=== PATIENT | female | born 1980 | race Caucasian/White ===

== ENCOUNTER 2020-02-25 17:51 | Observation (INO) | payer SELFPAY ==
[2020-02-25] MEDS ORDERED: NALOXONE HCL INJ/PF 0.4 MG/1 ML SDV ONE (18:18)
[2020-02-25] MEDS ORDERED: NALOXONE HCL INJ/PF 0.4 MG/1 ML SDV IV ONE ×2 (18:26→19:18)
--- NOTE | 2020-02-25 18:33 | ER Document Report ---
ED General - General Chief Complaint: Overdose Stated Complaint: POSSIBLE OVERDOSE Time Seen by Provider: 02/25/20 18:09 - HPI Notes: Patient is a 39-year-old female who presents to the emergency department for evaluation after an overdose. Evidently she was snorting heroin, taking Xanax. She was found by EMS and family to be unresponsive, had perioral cyanosis, with a respiratory rate of 6. She was administered 0.2 mg of IM naloxone, back, and brought to the emergency department. The patient states she was only doing it recreationally. She states she is to be prescribed Xanax. She also states that she only started using heroin recently, and states to me "it was not that much." She denies any suicidal or homicidal ideations. No visual or auditory hallucinations. - Related Data Allergies/Adverse Reactions: amoxicillin Allergy (Verified 02/25/20 18:07) Penicillins Allergy (Verified 02/25/20 18:07) Past Medical History - General Information source: Patient - Social History Smoking Status: Current Every Day Smoker Chew tobacco use (# tins/day): No Drug Abuse: Heroin, Marijuana, Prescription drugs - Benzodiazepines Family History: Reviewed & Not Pertinent Patient has homicidal ideation: No Malignancy Medical History: Reports: Hx Cervical Cancer Psychiatric Medical History: Reports: Hx Anxiety Review of Systems - Review of Systems Respiratory: See HPI Neurological/Psychological: See HPI -: Yes All other systems reviewed and negative Physical Exam - Vital signs Vitals: BP 119/89 H 02/25/20 17:58 - Notes Notes: This is an extremely drowsy 39-year-old female who appears her stated age. On initial evaluation respiratory rate between 8 and 10. Pupils pinpoint. She would open her eyes to command, voice was slurred. Vital signs reviewed, please refer to chart. Head is normocephalic, atraumatic. Neck is supple without meningismus. Heart is regular rate and rhythm. Lungs are clear to auscultation bilaterally. Abdomen is soft, nontender, normoactive bowel sounds throughout. Extremities without cyanosis, clubbing. Posterior calves are nontender. Cecelia pheral pulses are equal. Skin is warm and dry. Course - Re-evaluation Re-evalutation: 02/25/20 18:32 Patient presents to the emergency department for evaluation. Initially respiratory rate was depressed, her pupils were pinpoint. Once IV was established in the left arm, patient was administered 0.4 mg of IV Narcan. Her respiratory rate immediately rebounded to 16, and patient became more awake and alert. Her pupils are now 4 mm and reactive. She was placed on a monitor. I offered her drug counseling, the patient states "I really do not use heroin that much." Patient is on monitor. Blood work is drawn. We will continue to monitor. 02/25/20 19:20 Labs were reviewed. Patient's calcium is only mildly low when it is corrected. Her potassium and magnesium were ordered to be replaced. I went back and reassessed the patient. Again she is somnolent, respiratory rate is 8, and pupils are pinpoint. More Narcan ordered. 02/25/20 20:52 Shortly after administration of third dose of Narcan, patient again became lissette nolent, pinpoint pupils. Narcan drip ordered. I spoke with Fazal Mckenzie, [employer] and clinical application manager overnight, he will admit the patient for further care. 02/25/20 20:55 Please note that nursing took a phone call from the patient's mother. It was reported that the patient was fighting with her , locked herself in the bathroom, and overdosed on these medications. I confronted the patient with this knowledge. She denies this. She denies any suicidal ideation. She states she does not even have a door on her bathroom at this time. Please note the clinical application manager overnight was notified of this update. - Vital Signs Vital signs: Temp Pulse Resp BP Pulse Ox 98.1 F 14 109/74 98 02/25/20 18:02 02/25/20 19:23 02/25/20 19:23 02/25/20 19:23 - Laboratory Result Diagrams: 02/25/20 18:20 02/25/20 18:20 Laboratory results interpreted by me: 02/25/20 02/25/20 18:20 18:20 RDW 15.0 H Sodium 136.9 L Potassium 3.0 L* Chloride 113 H Anion Gap 2 L Calcium 6.4 L* Magnesium 1.4 L AST 41 H ALT 56 H Total Protein 5.5 L Albumin 2.5 L Salicylates < 1.0 L Acetaminophen < 10 L - EKG Interpretation by Me Additional EKG results interpreted by me: 05/26/20 20:54 Sinus mechanism with a rate of 70 bpm. Normal axis and intervals. No acute ST changes concerning for ischemia or infarction. Discharge - Discharge Clinical Impression: Heroin overdose, Hypokalemia, Hypomagnesemia Condition: Stable Disposition: ADMITTED OBSERVATION Admitting Provider: Kisha ([employer] Pipelines Supervisor) Unit Admitted: ICU
[2020-02-25 18:42] LABS: ABSOLUTE BASOPHILS # (AUTO) 0.1 10^3/uL (0.0-0.2); ABSOLUTE EOSINOPHILS # (AUTO) 0.1 10^3/uL (0.0-0.6); ABSOLUTE LYMPHOCYTES (AUTO) 1.5 10^3/uL (0.5-4.7); ABSOLUTE MONOCYTES (AUTO) 0.6 10^3/uL (0.1-1.4); ABSOLUTE NEUT (AUTO) 5.8 10^3/uL (1.7-8.2); BASOPHILS % (AUTO) 1.4 % (0-2); HEMATOCRIT 40.7 % (36.0-47.0); HEMOGLOBIN 13.9 g/dL (12.0-15.5); LYMPHOCYTES % (AUTO) 18.4 % (13-45); MEAN CORPUSCULAR HEMOGLOBIN 30.5 pg (27.0-33.4); MEAN CORPUSCULAR HGB CONC 34.2 g/dL (32.0-36.0); MEAN CORPUSCULAR VOLUME 89 fl (80-97); MONOCYTES % (AUTO) 6.9 % (3-13); PLATELET COUNT 235 10^3/uL (150-450); RED BLOOD COUNT 4.56 10^6/uL (3.72-5.28); SEGMENTED NEUTROPHILS % (AUTO) 72.3 % (42-78); TOTAL CELLS COUNTED % (AUTO) 100 %
[2020-02-25 18:57] LABS: ALBUMIN 2.5 g/dL (3.5-5.0); ALKALINE PHOSPHATASE 59 U/L (38-126); ASPARTATE AMINO TRANSFERASE 41 U/L (14-36); BILIRUBIN,TOTAL 0.4 mg/dL (0.2-1.3); BLOOD UREA NITROGEN 8 mg/dL (7-20); GLUCOSE 89 mg/dL (75-110); TOTAL PROTEIN 5.5 g/dL (6.3-8.2)
[2020-02-25 19:02] LABS: CARBON DIOXIDE 22 mmol/L (22-30); CHLORIDE 113 mmol/L (98-107)
[2020-02-25 19:12] LABS: ACETAMINOPHEN < 10 ug/mL (10-30); ALCOHOL < 10 mg/dL (NONE DETECTED); SALICYLATE < 1.0 mg/dL (2.0-20.0)
[2020-02-25 19:13] LABS: CALCIUM 6.4 mg/dL (8.4-10.2)
[2020-02-25 19:14] LABS: ANION GAP 2 (5-19)
[2020-02-25] MEDS ORDERED: MAGNESIUM SULFATE/D5W 1 GM/100 ML RTUPB IV ONE (19:15)
[2020-02-25] MEDS ORDERED: POTASSIUM CHLORIDE 10 MEQ TABLET.ER PO ONE (19:15)
[2020-02-25] MEDS ORDERED: NORMAL SALINE 500 ML with NALOXONE HCL 2 MG IV PRN ×2 (19:50)
[2020-02-25] MEDS ORDERED: NALOXONE HCL INJ 2 MG/2 ML DISP.SYRIN ONE (20:12)
[2020-02-25] MEDS: MAGNESIUM SULFATE/D5W 1 GM/100 ML RTUPB IV SCH ×2 (22:46→23:47)
[2020-02-26] MEDS ORDERED: RINGERS SOLUTION,LACTATED 500 ML IV ONE (00:11)
[2020-02-26] MEDS: MAGNESIUM SULFATE/D5W 1 GM/100 ML RTUPB IV SCH (01:32)
--- NOTE | 2020-02-26 03:54 | CRITICAL CARE ADMISSION REPORT ---
HPI Date:: 02/25/20 Time:: 21:00 Reason for ICU Reason:: Metabolic encephalopathy due to accidental heroin overdose, respiratory depression HPI: Haleigh Lu is a 39-year-old female with a PMH significant for seizures of unclear etiology with onset at age 33 with no prescription for medication, occasional migraine headaches for which she only takes Tylenol, remote pyelonephritis during , and remote gastric ulcer for which she avoids NSAID's who presented to [facility] ED following an accidental heroin overdose. She was found by family and EMS to be unresponsive, had perioral cyanosis, with a respiratory rate of 6 for which she received 0.2 mg of IM Naloxone and was brought to the emergency department. Mrs Lu had pinpoint pupils with respiratory depression requiring multiple doses of Naloxone in the ED due to recurrent somnolence and respiratory depression for which a Naloxone infusion had to be initiated. ICU team is consulted to monitor for respiratory depression and management of the Naloxone infusion. To note, Mrs Lu reportedly had a prescription for Xanax in the past, but now obtains it illegally. She also informed me that she never does heroin, but decided to do "a little bit" and last exposure was years ago. She denies suicidal or homicidal ideations with no visual or auditory hallucinations at this time. Mrs Lu was wide awake during my encounter. History obtained from:: Patient, ER physician - Diagnosis/Plan (1) Accidental overdose of heroin Qualifiers: Encounter type: initial encounter Qualified Code(s): T40.1X1A - Poisoning by heroin, accidental (unintentional), initial encounter Is this a current diagnosis for this admission?: Yes Plan: Substance abuse cessation counseling will need to be provided prior to discharge. (2) Acute metabolic encephalopathy Is this a current diagnosis for this admission?: Yes Plan: Improved after multiple IV push doses of Naloxone in the ED followed by an infusion. Monitor for recurrence. (3) Respiratory depression Is this a current diagnosis for this admission?: Yes Plan: Improved after multiple IV push doses of Naloxone in the ED followed by an infusion. Monitor for recurrent depression in ICU. (4) Hypokalemia Is this a current diagnosis for this admission?: Yes (5) Hypomagnesemia Is this a current diagnosis for this admission?: Yes (6) Tobacco abuse Is this a current diagnosis for this admission?: Yes Plan: Tobacco abuse cessation counseling will need to be provided prior to discharge. Monitor need for Nicotine patch. Plan Summary: Mrs Lu will be admitted under observation status to the ICU on a Naloxone infusion monitoring for respiratory depression. However, she was wide awake conversing with me in an appropriate manner for 30 minutes during my encounter in the ED and I suspect the Naloxone will be discontinued overnight. She admits to snorting a small amount of heroin which she reportedly does not do regularly, uncertain if laced with any other additive such as Fentanyl. She has been experiencing a lot of stress lately in regards to her teenage daughter being impregnated "by a heroin addict" for which they both now live under her roof. She denies having any altercation with her . Admittedly, Mrs Lu does report a history of "anger management issues" on occasion which she has been working on, but denies suicidal or homicidal ideations. This appears to be an accidental heroin overdose and psychiatry does not need to be involved at this time. Mrs Lu will remain on telemetry with continuous pulse oximetry overnight. I will likely start her on a regular diet at some point if she maintains current level of alertness. Her Potassium has already been repleted orally, though I anticipate she will need more in the AM. She is receiving 1 gm of Magnesium, though I will order 3 additional grams for a total of 4 gm with no need to repeat the level in the AM. Will check ionized Ca+ level in AM. No an tibiotics are warranted at this time. A urine drug screen will be sent once patient voids. Bedrest tonight, with out of bed to chair in the morning if off Narcan infusion. I anticipate Mrs Lu will be discharged home from ICU in the morning, therefore, have placed her in observation status. Past Medical History Cardiac Medical History: Reports: None Pulmonary Medical History: Reports: None EENT Medical History: Reports: None Neurological Medical History: Reports: Migraine - does not take medicine, Seizures - Last seizure <2 weeks ago and one prior to that was "two years ago." Denies: Hemorrhagic CVA, Ischemic CVA, Multiple Sclerosis Endocrine Medical History: Reports: None Renal/ Medical History: Reports: Chronic Kidney Disease, Other - remote pyelonephritis causing some reduced renal dysfunction historically Denies: Nephrolithiasis Malignancy Medical History: Reports: Cervical Cancer GI Medical History: Reports: Other - remote gastric ulcer s/p EGD-unsure if c autery or hemostatic clips applied Musculoskeltal Medical History: Reports: None Skin Medical History: Reports: None Psychiatric Medical History: Reports: General Anxiety Disorder, Tobacco Dependency Traumatic Medical History: Reports: None Hematology: Reports: None Infectious Medical History: Reports: None Past Surgical History Past Surgical History: Reports: Section, Other - EGD Social/Family History - Social History Smoking Status: Current Every Day Smoker Frequency of Alcohol Use: Rare Hx Recreational Drug Use: Yes Drugs: Heroin - last use earlier today, Marijuana, Other - Xanax-last use 02/24/2020 - Family History Family History: Hypertension - Medication/Allergies Home Medications: Azithromycin 250 mg PO DAILY #4 tablet 03/07/16 Oxycodone HCl 5 mg PO Q4 #20 tablet 03/07/16 Allergies/Adverse Reactions: amoxicillin Allergy (Verified 02/25/20 18:07) Penicillins Allergy (Verified 02/25/20 18:07) Review of Systems Constitutional: ABSENT: chills, fever(s), headache(s), night sweats, weakness Eyes: ABSENT: visual disturbances Ears: ABSENT: hearing changes Nose, Mouth, and Throat: ABSENT: headache(s), mouth pain, sore throat, vertigo Cardiovascular: ABSENT: chest pain, dyspnea on exertion, edema Respiratory: ABSENT: cough, dyspnea, hemoptysis Gastrointestinal: ABSENT: abdominal pain, nausea, vomiting Genitourinary: ABSENT: dysuria, hematuria Musculoskeletal: ABSENT: deformity, joint swelling, muscle weakness Integumentary: ABSENT: diaphoresis, erythema, pruritus, rash, wounds Neurological: ABSENT: abnormal gait, convulsions, dizziness, frequent falls, syncope, weakness Psychiatric: PRESENT: anxiety. ABSENT: hallucinations, homidical ideation, suicidal ideation Endocrine: ABSENT: cold intolerance, heat intolerance Hematologic/Lymphatic: ABSENT: easy bleeding, easy bruising, lymphadenopathy Physical Exam Vital Signs: Temp Pulse Resp BP Pulse Ox 98.1 F 20 113/70 97 02/25/20 18:02 02/25/20 21:01 02/25/20 21:01 02/25/20 21:01 Intake & Output 02/24/20 02/25/20 02/26/20 06:59 06:59 06:59 Intake Total 100 Balance 100 General appearance: PRESENT: no acute distress, cooperative, obese, well- developed Head exam: PRESENT: atraumatic, normocephalic Eye exam: PRESENT: conjunctiva pink, EOMI, PERRLA. ABSENT: periorbital swelling, scleral icterus Ear exam: PRESENT: normal external ear exam Mouth exam: PRESENT: moist, neck supple, tongue midline. ABSENT: dry mucosa Throat exam: ABSENT: post pharyngeal erythema Neck exam: PRESENT: full ROM. ABSENT: JVD, lymphadenopathy, tenderness, tracheal deviation Respiratory exam: PRESENT: clear to auscultation [place], symmetrical, unlabored. ABSENT: accessory muscle use Cardiovascular exam: PRESENT: RRR, +S1, +S2. ABSENT: gallop, rubs, systolic murmur Pulses: PRESENT: normal radial pulses, +2 pedal pulses bilateral Vascular exam: PRESENT: normal capillary refill GI/Abdominal exam: PRESENT: normal bowel sounds, soft. ABSENT: distended, guarding, rebound, tenderness Rectal exam: PRESENT: deferred Extremities exam: PRESENT: full ROM. ABSENT: joint swelling, pedal edema, tenderness Musculoskeletal exam: PRESENT: full ROM, normal inspection. ABSENT: deformity, tenderness Neurological exam: PRESENT: alert, awake, oriented to place, oriented to time, oriented to situation, CN II-XII grossly intact Psychiatric exam: PRESENT: appropriate affect, normal mood. ABSENT: homicidal ideation, manic, suicidal ideation Focused psych exam: ABSENT: restlessness Skin exam: PRESENT: dry, intact, normal color, warm. ABSENT: jaundice, rash Laboratory/Radiographs Laboratory Results: 02/25/20 18:20 02/25/20 18:20 02/25/20 02/25/20 02/25/20 18:20 18:20 18:20 WBC 8.0 RBC 4.56 Hgb 13.9 Hct 40.7 MCV 89 MCH 30.5 MCHC 34.2 RDW 15.0 H Plt Count 235 Seg Neutrophils % 72.3 Sodium 136.9 L Potassium 3.0 L* Chloride 113 H Carbon Dioxide 22 Anion Gap 2 L BUN 8 Creatinine 0.53 Est GFR ( Amer) > 60 Glucose 89 Calcium 6.4 L* Magnesium 1.4 L Total Bilirubin 0.4 AST 41 H Alkaline Phosphatase 59 Total Protein 5.5 L Albumin 2.5 L Serum HCG, Qual NEGATIVE EKG: NSR with no evidence of cardiac ischemia/infarction. All labs, radiographs, diagnostic studies and EKGs were personally reviewed: Yes Critical Time Critical Time (minutes): 60 -: The care of a critically ill patient is dynamic. This note represents a static moment in the admission process. Orders and treatments may be given simultaneously and urgently, and time is not guest experience representative of the treatment process. This patient requires Critical Care secondary to life threatening organ or limb dysfunction. Without Critical Care services, the patient is at risk for in creased mortality and morbidity.
[2020-02-26 04:43] LABS: APPEARANCE,URINE SLIGHTLY-CLOUDY; BILIRUBIN,URINE NEGATIVE (NEGATIVE); COLOR,URINE YELLOW; GLUCOSE, URINE NEGATIVE (NEGATIVE); KETONES,URINE NEGATIVE (NEGATIVE); LEUKOCYTE ESTERASE,URINE MODERATE (NEGATIVE); NITRITE,URINE NEGATIVE (NEGATIVE); PROTEIN,URINE 100 mg/dL (NEGATIVE); URINE SPECIFIC GRAVITY 1.015; UROBILINOGEN,URINE NEGATIVE mg/dL (<2.0)
[2020-02-26 04:50] LABS: ALBUMIN 3.8 g/dL (3.5-5.0); ALKALINE PHOSPHATASE 82 U/L (38-126); ANION GAP 5 (5-19); ASPARTATE AMINO TRANSFERASE 52 U/L (14-36); BILIRUBIN,TOTAL 0.5 mg/dL (0.2-1.3); BLOOD UREA NITROGEN 9 mg/dL (7-20); CARBON DIOXIDE 26 mmol/L (22-30); CHLORIDE 103 mmol/L (98-107); GLUCOSE 91 mg/dL (75-110); PHOSPHORUS 4.3 mg/dL (2.5-4.5); TOTAL PROTEIN 7.2 g/dL (6.3-8.2)
[2020-02-26 04:57] LABS: POTASSIUM 4.6 mmol/L (3.6-5.0)
[2020-02-26 04:57] LABS: URINE BARBITURATES SCREEN NEGATIVE; URINE COCAINE SCREEN NEGATIVE; URINE METHADONE SCREEN NEGATIVE; URINE PHENCYCLIDINE SCREEN NEGATIVE
[2020-02-26 05:23] LABS: URINE BENZODIAZEPINES SCREEN UNCONFIRMED POSITIVE; URINE MARIJUANA (THC) SCREEN UNCONFIRMED POSITIVE
--- NOTE | 2020-02-26 07:24 | EKG REPORT ---
SEVERITY:- NORMAL ECG - SINUS RHYTHM : Confirmed by: Chuy Mclean MD 26-Feb-2020 07:23:17
--- NOTE | 2020-02-26 07:48 | PDOC DISCHARGE SUMMARY ---
Impression - Admit/DC Date/PCP Admission Date/Primary Care Provider: 02/25/20 21:01 Discharge Date: 02/26/20 - Discharge Diagnosis (1) Acute hypercapnic respiratory failure Is this a current diagnosis for this admission?: Yes (2) Accidental overdose of heroin Is this a current diagnosis for this admission?: Yes (3) Acute metabolic encephalopathy Is this a current diagnosis for this admission?: Yes (5) Hypokalemia Is this a current diagnosis for this admission?: Yes (6) Hypomagnesemia Is this a current diagnosis for this admission?: Yes (7) Respiratory depression Is this a current diagnosis for this admission?: Yes (8) Tobacco abuse Is this a current diagnosis for this admission?: Yes (9) UTI (urinary tract infection), uncomplicated Is this a current diagnosis for this admission?: Yes - Assessment Summary: Pat Moore is a 39-year-old female with an occasional history of heroin use who after being upset regarding social issues at home took an unintentional overdose of heroin. There was no intent for self-harm. She had some mild hypokalemia and mild respiratory depression related to this which was treated with Narcan and potassium supplementation. Repeat potassium had normalized. She was intent on leaving AGAINST MEDICAL ADVICE but was able to be reasoned with and convinced to await physician reexamination. She is fully awake, fully aware, understands the implications of what she did and is interested in seeking rehabilitation. She also states that she really does not habitually use heroin but did this as a frustration in response to her daughter's . She denies chest pain, shortness of breath, abdominal pain, fever,. She was noted to have positive leukocyte esterase in her urine with white blood cells. She does endorse that she had dysuria a week ago but appear to be improving. She does not endorse any pelvic inflammatory disease symptomatology or vaginal discharge. She had an uneventful ICU course. She was able to ambulate in the ICU. No hemodynamic instability no neurological deficits. - Additional Information Resuscitation Status: Full Code Discharge Diet: As Tolerated Discharge Activity: Activity As Tolerated, Other - Do not smoke, please seek counseling and rehabilitation for heroin use. Home Medications: Azithromycin 250 mg PO DAILY #4 tablet 03/07/16 Oxycodone HCl 5 mg PO Q4 #20 tablet 03/07/16 Additional Information: Please take Macrobid 100 mg twice daily for 5 days. History of Present Illiness History of Present Illness: MALLORY MOORE is a 39 year old female admitted for unintentional heroin overdose. She had respiratory depression hypokalemia which were treated. Her respiratory depression is treated with doses of Narcan. She attributes her occasional use to situational social dysfunction at home. Her daughter who is 19 and is in relationship with a chronic heroin user. Hospital Course Hospital Course: Please see description at top Physical Exam Vital Signs: Temp Pulse Resp BP Pulse Ox 98.3 F 78 15 112/96 H 97 02/26/20 04:00 02/26/20 00:00 02/26/20 06:00 02/26/20 05:01 02/26/20 06:00 Intake & Output 02/25/20 02/26/20 02/27/20 06:59 06:59 06:59 Intake Total 1360 Output Total 260 Balance 1100 Weight 104.6 kg General appearance: PRESENT: no acute distress, obese, well-developed, well- nourished Exam: Nontoxic, older appearing 39-year-old female no acute distress. She is awake alert oriented x4. She is situationally aware as well. Hemodynamics noted Head exam: PRESENT: atraumatic, normocephalic Eye exam: PRESENT: conjunctiva pink, EOMI, PERRLA. ABSENT: conjunctival injection, nystagmus, scleral icterus Ear exam: PRESENT: normal external ear exam Mouth exam: PRESENT: moist, neck supple Teeth exam: PRESENT: poor dentation Neck exam: PRESENT: full ROM. ABSENT: JVD, thyromegaly, tracheal deviation Respiratory exam: PRESENT: clear to auscultation [place], unlabored. ABSENT: accessory muscle use, rales, rhonchi, tachypnea, wheezes Cardiovascular exam: PRESENT: RRR, +S1, +S2. ABSENT: systolic murmur - He has a cavity survey completed given that I reminded the Vascular exam: ABSENT: pallor GI/Abdominal exam: PRESENT: normal bowel sounds, soft. ABSENT: ascites, distended, guarding, mass, organolmegaly, rebound, tenderness Rectal exam: PRESENT: deferred Gentrourinary exam: PRESENT: other Extremities exam: PRESENT: full ROM Musculoskeletal exam: PRESENT: ambulatory. ABSENT: deformity, dislocation Neurological exam: PRESENT: alert, awake, oriented to person, oriented to place, oriented to time, oriented to situation, CN II-XII grossly intact, motor sensory deficit, normal gait. ABSENT: ataxia, aphasic Psychiatric exam: PRESENT: appropriate affect, normal mood Focused psych exam: ABSENT: pressured speech, psychomotor agitation, restlessness Skin exam: PRESENT: dry, intact, normal color, warm. ABSENT: cyanosis, mottled, rash Results Laboratory Results: WBC 8.0 10^3/uL (4.0-10.5) 02/25/20 18:20 RBC 4.56 10^6/uL (3.72-5.28) 02/25/20 18:20 Hgb 13.9 g/dL (12.0-15.5) 02/25/20 18:20 Hct 40.7 % (36.0-47.0) 02/25/20 18:20 MCV 89 fl (80-97) 02/25/20 18:20 MCH 30.5 pg (27.0-33.4) 02/25/20 18:20 MCHC 34.2 g/dL (32.0-36.0) 02/25/20 18:20 RDW 15.0 % (11.5-14.0) H 02/25/20 18:20 Plt Count 235 10^3/uL (150-450) 02/25/20 18:20 Lymph % (Auto) 18.4 % (13-45) 02/25/20 18:20 [place] % (Auto) 6.9 % (3-13) 02/25/20 18:20 Eos % (Auto) 1.0 % (0-6) 02/25/20 18:20 Baso % (Auto) 1.4 % (0-2) 02/25/20 18:20 Absolute Neuts (auto) 5.8 10^3/uL (1.7-8.2) 02/25/20 18:20 Absolute Lymphs (auto) 1.5 10^3/uL (0.5-4.7) 02/25/20 18:20 Absolute Monos (auto) 0.6 10^3/uL (0.1-1.4) 02/25/20 18:20 Absolute Eos (auto) 0.1 10^3/uL (0.0-0.6) 02/25/20 18:20 Absolute Basos (auto) 0.1 10^3/uL (0.0-0.2) 02/25/20 18:20 Seg Neutrophils % 72.3 % (42-78) 02/25/20 18:20 Sodium 134.4 mmol/L (137-145) L 02/26/20 04:06 Potassium 4.6 mmol/L (3.6-5.0) D 02/26/20 04:06 Chloride 103 mmol/L (98-107) 02/26/20 04:06 Carbon Dioxide 26 mmol/L (22-30) 02/26/20 04:06 Anion Gap 5 (5-19) 02/26/20 04:06 BUN 9 mg/dL (7-20) 02/26/20 04:06 Creatinine 0.66 mg/dL (0.52-1.25) 02/26/20 04:06 Est GFR ( Amer) > 60 (>60) 02/26/20 04:06 Est GFR (MDRD) Non-Af > 60 (>60) 02/26/20 04:06 Glucose 91 mg/dL (75-110) 02/26/20 04:06 Calcium 9.0 mg/dL (8.4-10.2) 02/26/20 04:06 Ionized Calcium [place] 1.17 mmol/L (1.14-1.30) 02/26/20 04:06 Phosphorus 4.3 mg/dL (2.5-4.5) 02/26/20 04:06 Magnesium 1.4 mg/dL (1.6-2.3) L 02/25/20 18:20 Total Bilirubin 0.5 mg/dL (0.2-1.3) 02/26/20 04:06 Direct Bilirubin 0.0 mg/dL (0.0-0.4) 02/26/20 04:06 Neonat Total Bilirubin Not Reportable 02/26/20 04:06 Neonat Direct Bilirubin Not Reportable 02/26/20 04:06 Neonat Indirect Bili Not Reportable 02/26/20 04:06 AST 52 U/L (14-36) H 02/26/20 04:06 ALT 77 U/L (<35) H 02/26/20 04:06 Alkaline Phosphatase 82 U/L (38-126) 02/26/20 04:06 Total Protein 7.2 g/dL (6.3-8.2) 02/26/20 04:06 Albumin 3.8 g/dL (3.5-5.0) 02/26/20 04:06 Serum HCG, Qual NEGATIVE (NEGATIVE) 02/25/20 18:20 Urine Color YELLOW 02/26/20 04:20 Urine Appearance SLIGHTLY-CLOUDY 02/26/20 04:20 Urine pH 6.0 (5.0-9.0) 02/26/20 04:20 Ur Specific [place] 1.015 02/26/20 04:20 Urine Protein 100 mg/dL (NEGATIVE) H 02/26/20 04:20 Urine Glucose (UA) NEGATIVE mg/dL (NEGATIVE) 02/26/20 04:20 Urine Ketones NEGATIVE mg/dL (NEGATIVE) 02/26/20 04:20 Urine Blood NEGATIVE (NEGATIVE) 02/26/20 04:20 Urine Nitrite NEGATIVE (NEGATIVE) 02/26/20 04:20 Urine Bilirubin NEGATIVE (NEGATIVE) 02/26/20 04:20 Urine Urobilinogen NEGATIVE mg/dL (<2.0) 02/26/20 04:20 Ur Leukocyte Esterase MODERATE (NEGATIVE) H 02/26/20 04:20 Urine WBC (Auto) 24 /HPF 02/26/20 04:20 Urine RBC (Auto) 11 /HPF 02/26/20 04:20 Urine Bacteria (Auto) TRACE /HPF 02/26/20 04:20 Squamous Epi Cells Auto 6 /HPF 02/26/20 04:20 Urine Mucus (Auto) FEW /LPF 02/26/20 04:20 Urine Ascorbic Acid NEGATIVE (NEGATIVE) 02/26/20 04:20 Salicylates < 1.0 mg/dL (2.0-20.0) L 02/25/20 18:20 Urine Opiates Screen UNCONFIRMED POSITIVE 02/26/20 04:20 Ur Opiates Confirm Cancelled 02/26/20 04:20 U Opiate Confm (GC/MS) Cancelled 02/26/20 04:20 Other Opiates Note Cancelled 02/26/20 04:20 Urine Codeine Confirm Cancelled 02/26/20 04:20 U Codeine Confrm GC/MS Cancelled 02/26/20 04:20 Ur Morphine Confirm Cancelled 02/26/20 04:20 Ur Morphine (GC/MS) Cancelled 02/26/20 04:20 Urine Methadone Screen NEGATIVE 02/26/20 04:20 Acetaminophen < 10 ug/mL (10-30) L 02/25/20 18:20 Ur Barbiturates Screen NEGATIVE 02/26/20 04:20 Ur Phencyclidine Scrn NEGATIVE 02/26/20 04:20 Ur Amphetamines Screen 02/26/20 04:20 U Amphetamines Confirm Cancelled 02/26/20 04:20 U Benzodiazepines Scrn UNCONFIRMED POSITIVE 02/26/20 04:20 U Benzodiazepine Confm Cancelled 02/26/20 04:20 Urine Cocaine Screen NEGATIVE 02/26/20 04:20 U Cannabinoids Confirm Cancelled 02/26/20 04:20 U Marijuana (THC) Screen UNCONFIRMED POSITIVE 02/26/20 04:20 Serum Alcohol < 10 mg/dL (NONE DETECTED) 02/25/20 18:20 Impressions: Labs- Entire Visit 02/25/20 02/25/20 02/25/20 18:20 18:20 18:20 WBC 8.0 RBC 4.56 Hgb 13.9 Hct 40.7 MCV 89 MCH 30.5 MCHC 34.2 RDW 15.0 H Plt Count 235 Lymph % (Auto) 18.4 [place] % (Auto) 6.9 Eos % (Auto) 1.0 Baso % (Auto) 1.4 Absolute Neuts (auto) 5.8 Absolute Lymphs (auto) 1.5 Absolute Monos (auto) 0.6 Absolute Eos (auto) 0.1 Absolute Basos (auto) 0.1 Seg Neutrophils % 72.3 Sodium 136.9 L Potassium 3.0 L* Chloride 113 H Carbon Dioxide 22 Anion Gap 2 L BUN 8 Creatinine 0.53 Est GFR ( Amer) > 60 Est GFR (MDRD) Non-Af > 60 Glucose 89 Calcium 6.4 L* Ionized Calcium [place] Phosphorus Magnesium 1.4 L Total Bilirubin 0.4 Direct Bilirubin 0.0 Neonat Total Bilirubin Not Reportable Neonat Direct Bilirubin Not Reportable Neonat Indirect Bili Not Reportable AST 41 H ALT 56 H Alkaline Phosphatase 59 Total Protein 5.5 L Albumin 2.5 L Serum HCG, Qual NEGATIVE Urine Color Urine Appearance Urine pH Ur Specific [place] Urine Protein Urine Glucose (UA) Urine Ketones Urine Blood Urine Nitrite Urine Bilirubin Urine Urobilinogen Ur Leukocyte Esterase Urine WBC (Auto) Urine RBC (Auto) Urine Bacteria (Auto) Squamous Epi Cells Auto Urine Mucus (Auto) Urine Ascorbic Acid Salicylates < 1.0 L Urine Opiates Screen Ur Opiates Confirm U Opiate Confm (GC/MS) Other Opiates Note Urine Codeine Confirm U Codeine Confrm GC/MS Ur Morphine Confirm Ur Morphine (GC/MS) Urine Methadone Screen Acetaminophen < 10 L Ur Barbiturates Screen Ur Phencyclidine Scrn Ur Amphetamines Screen U Amphetamines Confirm U Benzodiazepines Scrn U Benzodiazepine Confm Urine Cocaine Screen U Cannabinoids Confirm U Marijuana (THC) Screen Serum Alcohol < 10 02/26/20 02/26/20 02/26/20 04:06 04:06 04:20 WBC RBC Hgb Hct MCV MCH MCHC RDW Plt Count Lymph % (Auto) [place] % (Auto) Eos % (Auto) Baso % (Auto) Absolute Neuts (auto) Absolute Lymphs (auto) Absolute Monos (auto) Absolute Eos (auto) Absolute Basos (auto) Seg Neutrophils % Sodium 134.4 L Potassium 4.6 D Chloride 103 Carbon Dioxide 26 Anion Gap 5 BUN 9 Creatinine 0.66 Est GFR ( Amer) > 60 Est GFR (MDRD) Non-Af > 60 Glucose 91 Calcium 9.0 Ionized Calcium [place] 1.17 Phosphorus 4.3 Magnesium Total Bilirubin 0.5 Direct Bilirubin 0.0 Neonat Total Bilirubin Not Reportable Neonat Direct Bilirubin Not Reportable Neonat Indirect Bili Not Reportable AST 52 H ALT 77 H Alkaline Phosphatase 82 Total Protein 7.2 Albumin 3.8 Serum HCG, Qual Urine Color YELLOW Urine Appearance SLIGHTLY-CLOUDY Urine pH 6.0 Ur Specific [place] 1.015 Urine Protein 100 H Urine Glucose (UA) NEGATIVE Urine Ketones NEGATIVE Urine Blood NEGATIVE Urine Nitrite NEGATIVE Urine Bilirubin NEGATIVE Urine Urobilinogen NEGATIVE Ur Leukocyte Esterase MODERATE H Urine WBC (Auto) 24 Urine RBC (Auto) 11 Urine Bacteria (Auto) TRACE Squamous Epi Cells Auto 6 Urine Mucus (Auto) FEW Urine Ascorbic Acid NEGATIVE Salicylates Urine Opiates Screen Ur Opiates Confirm U Opiate Confm (GC/MS) Other Opiates Note Urine Codeine Confirm U Codeine Confrm GC/MS Ur Morphine Confirm Ur Morphine (GC/MS) Urine Methadone Screen Acetaminophen Ur Barbiturates Screen Ur Phencyclidine Scrn Ur Amphetamines Screen U Amphetamines Confirm U Benzodiazepines Scrn U Benzodiazepine Confm Urine Cocaine Screen U Cannabinoids Confirm U Marijuana (THC) Screen Serum Alcohol 02/26/20 02/26/20 04:20 04:20 WBC RBC Hgb Hct MCV MCH MCHC RDW Plt Count Lymph % (Auto) [place] % (Auto) Eos % (Auto) Baso % (Auto) Absolute Neuts (auto) Absolute Lymphs (auto) Absolute Monos (auto) Absolute Eos (auto) Absolute Basos (auto) Seg Neutrophils % Sodium Potassium Chloride Carbon Dioxide Anion Gap BUN Creatinine Est GFR ( Amer) Est GFR (MDRD) Non-Af Glucose Calcium Ionized Calcium [place] Phosphorus Magnesium Total Bilirubin Direct Bilirubin Neonat Total Bilirubin Neonat Direct Bilirubin Neonat Indirect Bili AST ALT Alkaline Phosphatase Total Protein Albumin Serum HCG, Qual Urine Color Urine Appearance Urine pH Ur Specific [place] Urine Protein Urine Glucose (UA) Urine Ketones Urine Blood Urine Nitrite Urine Bilirubin Urine Urobilinogen Ur Leukocyte Esterase Urine WBC (Auto) Urine RBC (Auto) Urine Bacteria (Auto) Squamous Epi Cells Auto Urine Mucus (Auto) Urine Ascorbic Acid Salicylates Urine Opiates Screen UNCONFIRMED POSITIVE Ur Opiates Confirm Cancelled U Opiate Confm (GC/MS) Cancelled Other Opiates Note Cancelled Urine Codeine Confirm Cancelled U Codeine Confrm GC/MS Cancelled Ur Morphine Confirm Cancelled Ur Morphine (GC/MS) Cancelled Urine Methadone Screen NEGATIVE Acetaminophen Ur Barbiturates Screen NEGATIVE Ur Phencyclidine Scrn NEGATIVE Ur Amphetamines Screen U Amphetamines Confirm Cancelled U Benzodiazepines Scrn UNCONFIRMED POSITIVE U Benzodiazepine Confm Cancelled Urine Cocaine Screen NEGATIVE U Cannabinoids Confirm Cancelled U Marijuana (THC) Screen UNCONFIRMED POSITIVE Serum Alcohol Plan Health Concerns: Heroin use Urinary tract infection Anxiety disorder Tobacco abuse Plan of Treatment: Macrobid 100 g twice daily for 5 days Counseled for drug rehab Counseled to seek primary care for tobacco use discontinuation Counseled about self harm behaviors and plans for her family and her daughter Discussed about returning to emergency room for fever, chills, chest pain, shortness of breath, neurological dysfunction, worsening urinary symptoms, hematuria and any change in status Critical Time: 0 - [id number] Level of Care: MEDICAL Stroke Is this a Stroke Patient?: No Acute Heart Failure - Is this a Heart Failure Patient?: No
[2020-02-26 08:07] VITALS: BP 118/76
[2020-02-26] MEDS ORDERED: ENOXAPARIN SODIUM INJ 40 MG/0.4 ML DISP.SYRIN SUBCUT SCH (10:00)
== END 2020-02-26 07:55 | disposition home or self-care (01) ==
LOC: ER 17:51 → EH 21:01 → ICU 23:27
PROVIDERS: ADMIT Internal Medicine Critical Care Medicine; ATTEND Internal Medicine Critical Care Medicine
DX: J96.02 Acute respiratory failure with hypercapnia (principal); T40.1X1A Poisoning by heroin, accidental (unintentional), initial encounter; G92 Toxic encephalopathy; E87.6 Hypokalemia; E83.42 Hypomagnesemia; N39.0 Urinary tract infection, site not specified; E66.9 Obesity, unspecified; F41.9 Anxiety disorder, unspecified; F17.200 Nicotine dependence, unspecified, uncomplicated; F11.10 Opioid abuse, uncomplicated; F12.10 Cannabis abuse, uncomplicated; F13.10 Sedative, hypnotic or anxiolytic abuse, uncomplicated; Z86.69 Personal history of other diseases of the nervous system and sense organs; Z63.79 Other stressful life events affecting family and household; Z82.49 Family history of ischemic heart disease and other diseases of the circulatory system; Z85.41 Personal history of malignant neoplasm of cervix uteri
CPT/HCPCS: 99238; 99291; 93005; 96376; 99285; 96365; 96366; 96367; 36415 ×2; 80307 ×4; 83735; 84100; 84703; 85025; 80053 ×2; 81001; 82330; 93010; J2310 ×2; J3475 ×2; J3490; J7040; J7120